=== PATIENT | female | born 1985 | race African-American/Black ===

== ENCOUNTER 2016-10-20 12:20 | Emergency (ER) | payer BC ==
[2016-10-20 13:02] LABS: ASCORBIC ACID (UR NOT ORDER) NEG (NEG); BILIRUBIN, URINE NEGATIVE (NEG); ER URINALYSIS TAT 0 Hrs 19 Mins; KETONE, URINE 80 MG/DL (NEG); LEUKOCYTE ESTERASE(NOT OR NEG (NEG); NITRITE (URINE) NEG (NEG); WBC (NOT ORDERED) (RFLEX) 6 (0-5)
[2016-10-20 13:02] LABS: BASOPHILS 0.1 %; BASOPHILS ABSOLUTE 0.01 10/3/uL (0.0-0.16); EOSINOPHILS 0.3 %; EOSINOPHILS ABSOLUTE 0.02 10/3/uL (0.0-0.53); ER CBC TAT 0 Hrs 07 Mins; HEMATOCRIT 34.1 % (36.0-48.0); HEMOGLOBIN 11.7 g/dL (12.0-16.0); IMMATURE GRANULOCYTES 0.1 %; IMMATURE GRANULOCYTES ABSOLUTE 0.01 10/3/uL (0.0-0.11); LYMPHOCYTES 14.5 %; MEAN CORPUS HGB CONC 34.3 g/dL (32.0-36.0); MEAN CORPUSCULAR HEMOGLOB 29.9 pg (26.0-34.0); MEAN CORPUSCULAR VOLUME 87.2 fL (80-100); MEAN PLATELET VOLUME 11.1 fL (9.2-13.0); MONOCYTES 5.9 %; MONOCYTES ABSOLUTE 0.41 10/3/uL (0.21-1.20); NEUTROPHILS 79.1 %; NEUTROPHILS ABSOLUTE 5.45 10/3/uL (2.02-8.40); PLATELET COUNT 212 10/3/uL (150-400); RBC DISTRIBUTION WIDTH 12.9 % (12.0-16.0); RED CELL COUNT 3.91 10/6/uL (4.0-5.6); WHITE BLOOD CELLS 6.9 10/3/uL (4.5-10.5)
[2016-10-20 13:03] LABS: MANUAL DIFF NO %
[2016-10-20 13:17] LABS: AMPHETAMINES (NOT ORD) NEG (NEG); BARBITURATES (NOT ORDERED NEG (NEG); BENZODIAZEPINES (NOT ORD) NEG (NEG); CANNABINOIDS (THC) POS (NEG); COCAINE (NOT ORDERED) NEG (NEG); OPIATES POS (NEG); PHENCYCLIDINE(PCP) NEG (NEG); TRICYCLICS NEG (NEG)
[2016-10-20 13:18] LABS: ALBUMIN 3.6 G/DL (3.5-5.0); ALKALINE PHOSPHATASE 64 U/L (45-117); BUN (BLOOD UREA NITROGEN) 6 MG/DL (6-23); CALCIUM, SERUM 9.1 MG/DL (8.5-10.4); CHLORIDE, SERUM 110 MMOL/L (96-112); CO2 (CARBON DIOXIDE) 23 MMOL/L (24-34); CREATININE 1.06 MG/DL (0.55-1.02); GFR AFRICAN AMERICAN 80 ML/MIN (>=60); GFR NON AFRICAN AMERICAN 69 ML/MIN (>=60); GLOBULIN 3.7 G/DL (2.5-4.1); POTASSIUM, SERUM 3.5 MMOL/L (3.5-5.3); SGOT(AST) 65 U/L (5-40); SGPT(ALT) 44 U/L (5-65); SODIUM, SERUM 143 MMOL/L (135-148); TOTAL BILIRUBIN 0.7 MG/DL (0-1.2); TOTAL PROTEIN 7.3 G/DL (6.0-8.5)
[2016-10-20 13:19] LABS: GLUCOSE, SERUM 102 MG/DL (60-99)
== END 2016-10-20 15:28 | disposition home or self-care (01) ==
LOC: ER 12:20
PROVIDERS: Physician Assistant Medical
DX: F12.90 Cannabis use, unspecified, uncomplicated (principal); R11.2 Nausea with vomiting, unspecified; F17.200 Nicotine dependence, unspecified, uncomplicated
CPT/HCPCS: 80053; 80305; 81001; 83690; 84703; 85025; 93005; 96372; 96374; 96375; 99284; J1630; J1885; J2405

== ENCOUNTER 2016-10-22 08:54 | Emergency (ER) | payer BC ==
[2016-10-22 09:43] LABS: BASOPHILS 0.5 %; BASOPHILS ABSOLUTE 0.03 10/3/uL (0.0-0.16); EOSINOPHILS 0.7 %; EOSINOPHILS ABSOLUTE 0.04 10/3/uL (0.0-0.53); HEMOGLOBIN 13.1 g/dL (12.0-16.0); IMMATURE GRANULOCYTES ABSOLUTE 0.06 10/3/uL (0.0-0.11); LYMPHOCYTES 27.1 %; LYMPHOCYTES ABSOLUTE 1.55 10/3/uL (0.67-4.30); MEAN CORPUS HGB CONC 34.7 g/dL (32.0-36.0); MEAN CORPUSCULAR HEMOGLOB 29.8 pg (26.0-34.0); MEAN CORPUSCULAR VOLUME 86.1 fL (80-100); MEAN PLATELET VOLUME 10.9 fL (9.2-13.0); MONOCYTES 10.3 %; MONOCYTES ABSOLUTE 0.59 10/3/uL (0.21-1.20); NEUTROPHILS 60.4 %; NEUTROPHILS ABSOLUTE 3.45 10/3/uL (2.02-8.40); RBC DISTRIBUTION WIDTH 12.6 % (12.0-16.0); RED CELL COUNT 4.39 10/6/uL (4.0-5.6); WHITE BLOOD CELLS 5.7 10/3/uL (4.5-10.5)
[2016-10-22 09:45] LABS: HEMATOCRIT 37.8 % (36.0-48.0); MANUAL DIFF NO %; PLATELET COUNT 281 10/3/uL (150-400)
[2016-10-22 09:59] LABS: A/G RATIO 0.8 (0.7-1.9); ALBUMIN 3.6 G/DL (3.5-5.0); ALKALINE PHOSPHATASE 70 U/L (45-117); BUN (BLOOD UREA NITROGEN) 5 MG/DL (6-23); CHLORIDE, SERUM 102 MMOL/L (96-112); CO2 (CARBON DIOXIDE) 26 MMOL/L (24-34); CREATININE 0.82 MG/DL (0.55-1.02); GFR AFRICAN AMERICAN 110 ML/MIN (>=60); GFR NON AFRICAN AMERICAN 95 ML/MIN (>=60); GLOBULIN 4.4 G/DL (2.5-4.1); GLUCOSE, SERUM 88 MG/DL (60-99); POTASSIUM, SERUM 3.2 MMOL/L (3.5-5.3); SGOT(AST) 44 U/L (5-40); SGPT(ALT) 57 U/L (5-65); SODIUM, SERUM 138 MMOL/L (135-148); TOTAL BILIRUBIN 0.9 MG/DL (0-1.2)
[2016-10-22 11:39] LABS: ASCORBIC ACID (UR NOT ORDER) NEG (NEG); BILIRUBIN, URINE NEGATIVE (NEG); ER URINALYSIS TAT 0 Hrs 12 Mins; KETONE, URINE 80 MG/DL (NEG); LEUKOCYTE ESTERASE(NOT OR NEG (NEG); NITRITE (URINE) NEG (NEG); WBC (NOT ORDERED) (RFLEX) 3 (0-5)
[2016-10-23] MEDS ORDERED: PR25 PO (17:35)
[2016-10-23] MEDS ORDERED: LEVSINTAB PO (17:37)
[2016-10-23] MEDS ORDERED: KLOR-CON M2020 MEQ PO (17:37)
[2016-10-23] MEDS ORDERED: HAIR/SKIN/NAILS PO (17:38)
[2016-10-23] MEDS ORDERED: CIP5 PO (17:38)
[2016-10-23] MEDS ORDERED: HARD NAILS PO (17:38)
[2016-10-23] MEDS ORDERED: CRANBERRY PO (17:38)
[2016-10-23] MEDS ORDERED: ZOFRANODT8 PO (17:39)
== END 2016-10-22 15:47 | disposition home or self-care (01) ==
LOC: ER 08:54
PROVIDERS: Emergency Medicine
DX: K52.9 Noninfective gastroenteritis and colitis, unspecified (principal); E87.6 Hypokalemia; F41.9 Anxiety disorder, unspecified; F17.200 Nicotine dependence, unspecified, uncomplicated
CPT/HCPCS: 74177; 80053; 81001; 83690; 84703; 85025; 96374; 96375; 99284; A9270-GY; J1170; J1956; J2405; Q9967

== ENCOUNTER 2016-10-23 14:49 | Inpatient (IN) | payer BC ==
--- NOTE | ~2016-10-23 | DS ---
Discharge Summary [facility] [address] [place]. [address] NAME: MARY KAY SHAH : 81 STATUS : DIS IN PAT#: [id number] AGE: 30 ADM/REG DATE : 10/23/16 MR#: [id number] REPORT SERV DATE: 10/29/16 DICTATED BY: JR. PEREZ WILLIAM JOHN DATE: 10/28/16 REPORT STATUS : Draft TRANSCRIBED BY: TREV DATE: 10/28/16 ADMISSION DATE: 10/23/2016 DISCHARGE DATE: 10/28/2016 DISCHARGE DIAGNOSES: Include: 1. Biliary dyskinesia with intractable nausea and vomiting. 2. Aortic insufficiency with demand ischemia. 3. Alcohol and marijuana use. 4. Hypokalemia. 5. Hyperglycemia. OPERATIONS/PROCEDURES AND TREATMENTS: Include: 1. Laparoscopic cholecystectomy done by Dr. Penn, 10/27/2016. 2. Chest x-ray done 10/24/2016 showed no acute cardiopulmonary abnormalities. 3. Gallbladder ultrasound done 10/24/2016, which showed many gallstones with tenderness over the gallbladder. No evidence of cholecystitis. 4. HIDA scan done 10/26/2016 showed no evidence of common bile duct or cystic duct obstruction. There was mildly diminished gallbladder ejection fraction of 32% consistent with biliary dyskinesia. 5. Echocardiogram done 10/24/2016, which showed left ventricular systolic function intact at 58% with left ventricular diastolic function intact, right ventricular systolic function intact. There was qllg-wa-vxgbsvmi aortic insufficiency centrally located. DISCHARGE MEDICATIONS: Include: 1. Phenergan 25 mg every four hours as needed. 2. Levsin 0.125 mg every four hours as needed. 3. Biotin one capsule daily. 4. Cranberry extract one tablet daily. 5. Percocet 5/325 every four hours as needed. 6. Zofran 4 mg every six hours as needed. HOSPITAL COURSE: The patient is a 30-year-old female, who presented to the emergency room on 10/23/2016 with complaint of nausea, vomiting, and abdominal pain. The patient's episodes began eight days prior to presentation with generalized malaise, nausea, and diarrhea and lasting couple days without evident blood. It worsens when she tries to eat. She had been to the emergency room three times in the interim. She was given a prescription for Cipro, which she did not take because "insurance did not cover it." She also had Levsin in addition to potassium. She continued to have abdominal pain, intermittent and sharp in the epigastric and lower right quadrant. On initial exam, her temperature is 98, heart rate 88, respiratory rate 16, blood pressure 170/86. Abdominal exam showed bowel sounds to be positive, soft, nondistended with moderate tenderness diffusely mostly in the epigastrium. Laboratory was overall unremarkable. The patient was admitted to the Clinical Decision Unit. She was treated conservatively with antiemetics and IV fluids. Continued to have nausea, vomiting, abdominal pain. She Discharge Summary [place] [id number] [facility] [place]. [address] NAME: MARY KAY SHAH : 81 STATUS : DIS IN PAT#: [id number] AGE: 30 ADM/REG DATE : 10/23/16 MR#: [id number] REPORT SERV DATE: 10/29/16 DICTATED BY: JR. PEREZ WILLIAM JOHN DATE: 10/28/16 REPORT STATUS : Draft TRANSCRIBED BY: TREV DATE: 10/28/16 underwent an echocardiogram for a murmur and was found to have llfh-rd-njbchggd aortic insufficiency. Regarding the aortic insufficiency, I discussed this with Cardiology. Her troponins were mildly elevated at 0.14. Cardiology felt this could be handled as an outpatient as there were no symptoms of acute coronary syndrome, no ischemic changes, and troponin curve was flat. The patient will be set up for outpatient followup in this regard. Regarding the nausea and vomiting, the patient continued to have nausea and vomiting. She underwent an ultrasound of the gallbladder, which is detailed above. Many stones were found. General Surgery and GI were consulted. The patient underwent a HIDA scan, which showed biliary dyskinesia without ductal obstruction. The patient subsequently underwent uneventful laparoscopic cholecystectomy by Dr. Penn on 10/27/2016. By 10/28/2016, the patient was able to tolerate food with some nausea, but no vomiting. She had flatus. Her abdominal exam was unremarkable and suture sites were intact. Regarding the alcohol and drug use, there was no evidence of detoxification. Regarding the remainder of the patient's health problems, they were stable. The patient will be discharged home today, 10/28/2016 in good condition. She will follow up with Cardiology at the next available time regarding aortic insufficiency. She will follow up with her primary care provider, Kiera Figueroa in one week and she will follow up with Dr. Penn per his wishes. I am attempting to communicate with Dr. Penn to find lifting restrictions and when the patient can return to work. Diet will be regular. This discharge took 35 minutes for patient encounter, coordination of care, and documentation. WJF/MODL Gibson Perez Jr, MD / [id number] CC: Gibson Perez Jr, MD MONTGOMERY, HEATHER
--- NOTE | ~2016-10-23 | CN ---
Consultation Report [facility] [address] [place]. [address] NAME: MARY KAY SHAH : 81 STATUS : ADM Analisa PAT#: [id number] AGE: 30 ADM/REG DATE : 10/23/16 MR#: [id number] REPORT SERV DATE: 10/25/16 DICTATED BY: NACHO MARTINEZ DATE: 10/25/16 REPORT STATUS : Draft TRANSCRIBED BY: TREV DATE: 10/25/16 GI CONSULTATION DATE OF CONSULTATION: 10/24/2016 REASON FOR CONSULTATION: Nausea, vomiting, and abdominal pain. HISTORY OF PRESENT ILLNESS: Ms. Shah is a 30-year-old female with a history of anxiety and panic attacks, who presented to [facility] with nausea, vomiting, and abdominal pain over the past eight days. She had been to the ER three times in total this month. She also reports that initially, she had diarrhea for two days, but this has since resolved. She has been given Levsin, Phenergan, and Zofran without any significant improvement of her symptoms. Her CBC and CMP have been normal. Her lipase was mildly elevated at 750, which is still less than two times the upper limit of normal (normal being 393). Her lipase is 397 today. She had a CT scan on 10/22/2016, which showed no acute findings. An ultrasound showed gallstones but without any evidence of cholecystitis and a normal common bile duct diameter. She had a positive sonographic Pappas sign. PAST MEDICAL HISTORY: Anxiety, panic attacks. PAST SURGICAL HISTORY: x4, tubal ligation. SOCIAL HISTORY: Tobacco use. Admitted to a bottle of vodka on weekends. Tested positive for marijuana. FAMILY HISTORY: Ovarian and breast cancers, and muscular dystrophy. MEDICATIONS: Reviewed. ALLERGIES: REVIEWED. PHYSICAL EXAMINATION: VITAL SIGNS: The patient is afebrile. Vital signs are stable. GENERAL: The patient is awake, alert, oriented x3. Well developed, well nourished, in no acute distress. HEENT: Atraumatic, normocephalic. Anicteric. Mucous membranes moist. CARDIAC: S1, S2. CHEST: Clear to auscultation bilaterally. ABDOMEN: Soft. Mild tenderness to palpation without any rebound or guarding. Bowel sounds normoactive, nondistended. LABORATORY DATA: Show WBC 6.9, hemoglobin 12.5, hematocrit 37, platelets 296. Sodium 138, potassium 3.9, chloride 105, bicarb 23, BUN 6, creatinine 0.76, glucose 76, lipase 397. Liver enzymes normal. INR is 1.2. CT scan and ultrasound as dictated above. Consultation Report [place] [id number] [place]. [address] NAME: MARY KAY SHAH : 81 STATUS : ADM Analisa PAT#: [id number] AGE: 30 ADM/REG DATE : 10/23/16 MR#: [id number] REPORT SERV DATE: 10/25/16 DICTATED BY: NACHO MARTINEZ DATE: 10/25/16 REPORT STATUS : Draft TRANSCRIBED BY: TREV DATE: 10/25/16 IMPRESSION AND PLAN: Nausea, vomiting, and abdominal pain. Gallstones seen on ultrasound; however, no cholecystitis or choledocholithiasis. No biliary dilatation seen. Surgery has already been consulted by hospitalist service. We will go ahead and order a HIDA scan for further evaluation of gallbladder function. We will continue to follow with you. AMPARO/TREV Nacho Martinez MD / [id number] CC: Gibson Perez Jr, MD MONTGOMERY, HEATHER
--- NOTE | ~2016-10-23 | HP ---
History And Physical [place] [id number] [facility] [place]. [address] NAME: MARY KAY SHAH : 81 STATUS : ADM Analisa PAT#: [id number] AGE: 30 ADM/REG DATE : 10/23/16 MR#: [id number] REPORT SERV DATE: 10/23/16 DICTATED BY: PATRICK STAHL DATE: 10/23/16 REPORT STATUS : Draft TRANSCRIBED BY: MODL DATE: 10/23/16 DATE OF ADMISSION: 10/23/2016 IDENTIFYING DATA: A 30-year-old female, whose PCP is Kiera Figueroa. CHIEF COMPLAINT: Nausea, vomiting, abdominal pain. HISTORY OF PRESENT ILLNESS: This history of present illness is obtained by discussion with the patient as well as with the ER provider and reviewing [facility] and the current ER chart. The patient states beginning eight days ago, she had general malaise, then she developed nausea and diarrhea. The diarrhea only lasted the first couple of days. There was never any red color or black color in it, but she states the nausea and vomiting have continued ever since. She states it gets worse if she tries to take anything by mouth. There has never been any red or black color in the emesis. She states she has come to the emergency room three times and indeed, I see that she has been at this particular emergency room on 10/20/2016, 10/22/2016 as well as today. She was given prescriptions for Phenergan and Zofran. She states they did not help. She was given a prescription for Cipro, but she did not start it because "insurance did not cover it." She also had some Levsin prescription given to her and potassium prescription. She describes she has abdominal pain through this week, right lower quadrant and epigastric area. It worsens when she tries to take anything by mouth. It is intermittent and sharp. In the emergency room today, she was found to have elevated lipase and felt to have pancreatitis, so we have been asked to admit her to the hospital. REVIEW OF SYSTEMS: She states she has had a temperature up to 99. She states her blood pressure has been elevated at some of her ER visits, but not otherwise in the past other than with . She states she has a fluttering sensation in her chest. She has been short of breath a bit this week. She states her arms and legs tingle when she gets nauseated. She has chronic headaches for which she states she takes oenl-hfp-piewxrg Tylenol PM and Excedrin. She denies any other chqd-kdd-nlazunj medicines. She denies sore throat, cough, chest pain, dysuria, urinary hesitancy, peripheral edema, rash, tick bites. She states she has lost weight from 189 pounds down to 160 pounds, but it is unclear over what period of time. ALLERGIES: NO KNOWN DRUG ALLERGIES. PAST MEDICAL HISTORY: She denies any history of diabetes, hypertension, asthma, COPD, heart disease, peptic ulcer, biliary tract disease, liver disease, blood transfusions, chronic kidney disease or kidney stones, thyroid disease or cancer. She admits a history of anxiety and panic attacks and in the past, was given Wellbutrin and propranolol. She states propranolol made her heart go to slow and Wellbutrin caused her to have more weight loss. She was given a prescription for Paxil in its place, but she never really took it. She has migraine headaches. She has had breast cyst on the left side, History And Physical [address] [address] NAME: MARY KAY SHAH : 81 STATUS : ADM Analisa PAT#: [id number] AGE: 30 ADM/REG DATE : 10/23/16 MR#: [id number] REPORT SERV DATE: 10/23/16 DICTATED BY: PATRICK STAHL DATE: 10/23/16 REPORT STATUS : Draft TRANSCRIBED BY: TREV DATE: 10/23/16 which she states is being followed by her physician with mammograms and she has family history of breast cancer. MEDICATIONS: Biotin for nails and hair; Levsin 0.125 mg q.4 hours p.r.n.; Zofran ODT 8 mg every eight hours p.r.n.; KCl 20 mEq daily, which I am not sure she took that; Phenergan 25 mg q.4 hours p.r.n. nausea, which was recently given to her as a prescription after one of her ER visits as well and some cranberry extract. SURGICAL HISTORY: She has had four C sections and she has had a tubal ligation. SOCIAL HISTORY: She smokes a very few cigarettes. She states on the weekend she drinks bottle of vodka. She states she does not drink otherwise. 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 She states she walks without assistive device. FAMILY HISTORY: States her mother had ovarian and breast cancer. She does not know about the health of her father. Siblings, one brother had muscular dystrophy and . Some cousins and aunts with breast cancer. DIAGNOSTIC AND LABORATORY DATA: CT scan of the abdomen and pelvis done yesterday, read by the radiologist as showing no acute abnormalities. Today, sodium 137, potassium 3.1, chloride 101, CO2 is 27, BUN 7, creatinine 0.86, glucose 97, calcium 9.4, globulin is 4.2. The rest of the CMP is normal. Lipase is 750. Serum HCG is negative today. Urine HCG was negative yesterday. Today's white count is 6.9, yesterday it was 5.7. Today's hemoglobin is 14.4, yesterday it was 13.1 and on 10/20/2016, it was 11.7. This pattern suggests hemoconcentration over the last few days. Platelets are 355,000. Urinalysis today, specific gravity 1.027, protein 100, ketones 80, urobilinogen 2, 3 white blood cells. PHYSICAL EXAMINATION: VITAL SIGNS: Temperature is 98, pulse 88, respirations 16, blood pressure 170/86, and O2 saturation 100% on room air. GENERAL: A well-developed female, who appears moderately uncomfortable at this time, but in no acute distress. HEENT: Head is atraumatic. Pupils are equal, round, and reactive to light. Extraocular motions are intact. No scleral icterus noted. Ear canals and TMs unremarkable. Nose, noninflamed externally. Septum midline. Nares patent. Mouth is dry, but there is good gag. No redness of the throat, gums, or lips. NECK: Supple. No lymph node or thyroid enlargement. The carotids have good pulses. No bruits. LUNGS: Clear, good air flow, no wheezes, no rhonchi anteriorly and posteriorly. Normal respiratory effort. HEART: Regular rate and rhythm with a grade 3-4/6 diastolic murmur heard best at the lower left sternal border. No gallop noted. ABDOMEN: Bowel sounds are positive. It is soft, nondistended. She has moderate tenderness diffusely, mostly in the epigastric area, somewhat in the right lower quadrant. No bruits noted. EXTREMITIES: Warm. Good pulses. No clubbing. No cyanosis. No edema. No actively inflamed skin or joints. History And Physical [address] [address] NAME: MARY KAY SHAH : 81 STATUS : ADM Analisa PAT#: [id number] AGE: 30 ADM/REG DATE : 10/23/16 MR#: [id number] REPORT SERV DATE: 10/23/16 DICTATED BY: PATRICK STAHL DATE: 10/23/16 REPORT STATUS : Draft TRANSCRIBED BY: TREV DATE: 10/23/16 NEUROLOGIC: She is alert. She is mildly anxious, but very cooperative. Her motor strength is intact throughout. No Babinski. No clonus noted. Cranial nerves II through XII grossly normal. ASSESSMENT: 1. Eight days of nausea, vomiting, and epigastric and right lower quadrant pain status post diarrhea (she states diarrhea resolved after the first couple of days). Differential diagnosis, pancreatitis which certainly have to be considered given the location of her pain and the nausea and her lipase elevation at 750 today. Other possibilities would be peptic ulcer disease or gastritis or an infectious etiology. 2. Significant diastolic murmur, may be aggravated by her volume depletion, but it does suggest significant aortic insufficiency. 3. Moderate weekend alcohol intake of bottle of vodka per weekend. The patient also had THC in her urine on urine drug screen here on 10/20/2016. 4. Hypokalemia related to eight days of nausea, vomiting, and epigastric and right lower quadrant pain status post diarrhea. 5. Elevated globulin suggesting some chronic inflammatory process. PLAN: 1. Observation status. 2. IV fluids. 3. Check an echocardiogram to check that murmur. 4. Check stool guaiac. 5. Check TSH with her weight loss. 6. Check HIV and hepatitis B and C. 7. Consultation to GI to consider EGD. 8. Gallbladder ultrasound. 9. [facility] protocol for her alcohol intake history, just to be cautious. NIK/TREV Patrick Stahl M.D. / [id number] CC: Gibson Perez Jr, MD Heather Montgomery, NP
--- NOTE | ~2016-10-23 | CN ---
Consultation Report [address] [place]. [address] NAME: MARY KAY SHAH : 81 STATUS : ADM Analisa PAT#: [id number] AGE: 30 ADM/REG DATE : 10/23/16 MR#: [id number] REPORT SERV DATE: 10/25/16 DICTATED BY: WALT CELESTIN DATE: 10/25/16 REPORT STATUS : Draft TRANSCRIBED BY: MODL DATE: 10/25/16 CONSULT NOTE DATE OF CONSULTATION: 10/25/2016 REASON FOR REQUEST: Evaluation for cholelithiasis. HISTORY OF PRESENT ILLNESS: Ms. Shah is a 30-year-old female, who for the past two weeks, has been experiencing epigastric abdominal pain and nausea and vomiting. She denies any intolerance to fatty foods and no fever or chills, no history of jaundice, just severe nausea and vomiting. She was admitted to the hospitalist service after having a CT scan that was completely normal. Ultrasound did demonstrate gallstones, but no evidence of cholecystitis. She denies any fever or chills. PAST MEDICAL HISTORY: Otherwise unremarkable. PREVIOUS SURGERIES: Include C-sections. ALLERGIES: NO KNOWN DRUG ALLERGIES. CURRENT MEDICATIONS: Taken at home, Levsin. SOCIAL HISTORY: She does smoke and drinks alcohol. FAMILY HISTORY: Significant for ovarian and breast cancer. REVIEW OF SYSTEMS: Comprehensive 12-point review of systems obtained and completely negative other than what was mentioned in history of present illness. PHYSICAL EXAMINATION: VITAL SIGNS: Temperature is 98.2, pulse 85, blood pressure 160/98. GENERAL: She is a well-developed female in no acute cardiopulmonary distress. HEENT: Pupils are equal, round, and reactive to light. Extraocular motions are intact. Conjunctivae are nonicteric. NECK: Supple. PULMONARY: Normal respiratory effort. Breath sounds are clear. CARDIOVASCULAR: Regular rate and rhythm. ABDOMEN: Soft. She has no Pappas sign. No tenderness whatsoever. EXTREMITIES: No clubbing, cyanosis, or edema. LABORATORY DATA: White blood cell count is 6.9, hematocrit 37, platelet count 296. Sodium 138, potassium 3.9, chloride 105, CO2 of 23, BUN 6, creatinine 0.7, lipase is 397. Troponin 0.14. Alk phos 55. Total bilirubin 1.1. Abdominal ultrasound does demonstrate gallstones, Consultation Report [place] [id number] [place]. [address] NAME: MARY KAY SHAH : 81 STATUS : ADM Analisa PAT#: [id number] AGE: 30 ADM/REG DATE : 10/23/16 MR#: [id number] REPORT SERV DATE: 10/25/16 DICTATED BY: WALT CELESTIN DATE: 10/25/16 REPORT STATUS : Draft TRANSCRIBED BY: MODL DATE: 10/25/16 but no evidence of wall thickening or pericholecystic fluid. CT scan of the abdomen and pelvis obtained completely normal with no inflammatory process seen. ASSESSMENT: 1. Cholelithiasis. 2. Nausea and vomiting. PLAN: Agree with the GI consult to get worked up for this extensive nausea and vomiting. Apparently, a HIDA scan has been ordered, but has not been performed as of yet. We will await that study. If no other etiology is identified, she may benefit from a cholecystectomy, but she does not have clinical signs of cholecystitis. DAMEON/TREV Walt Celestin M.D. / [id number] CC: Gibson Perez Jr, MD [place]TGOM[place], HEATHER
--- NOTE | ~2016-10-23 | OP ---
Record Of Operation [facility] [address] [place]. [address] NAME: MARY KAY SHAH : 81 STATUS : ADM IN PAT#: [id number] AGE: 30 ADM/REG DATE : 10/23/16 MR#: [id number] REPORT SERV DATE: 10/28/16 DICTATED BY: WALT CELESTIN DATE: 10/28/16 REPORT STATUS : Draft TRANSCRIBED BY: MODL DATE: 10/28/16 DATE OF PROCEDURE: 10/27/2016 PREOPERATIVE DIAGNOSIS: Cholelithiasis. POSTOPERATIVE DIAGNOSIS: Cholelithiasis. PROCEDURE PERFORMED: Laparoscopic cholecystectomy. SURGEON: Walt Celestin M.D. ANESTHESIA: General. ESTIMATED BLOOD LOSS: Minimal. SPECIMEN REMOVED: One gallbladder. BRIEF HISTORY: Ms. Shah is a 30-year-old female, presents with persistent nausea and vomiting. Imaging has confirmed presence of gallstones and Gastroenterology has been consulted to see her as well, thought her nausea may be secondary to biliary colic, and she presents today for cholecystectomy. FINDINGS AT TIME OF PROCEDURE: Ms. Shah' gallbladder was pale and distended, had some mild chronic inflammation. Limited examination of her liver, stomach, small and large bowel with no obvious abnormalities. DETAILS OF PROCEDURE: Following informed consent the patient was taken to the operating room and placed supine on the operating room table. After successful induction of general endotracheal anesthesia the abdomen was prepped and draped in the usual sterile fashion. An umbilical skin incision was made and skin hooks to elevate the skin edges and anterior rectus fascia. There was a small umbilical hernia defect and we were able to use this for the portal of entry into the abdominal cavity. A non bladed 5-mm trocar was inserted through this orifice, connected insufflation tubing and the peritoneal cavity was insufflated with carbon dioxide to a resting pressure of 15 mm mercury. A 5-mm laparoscope was then introduced. The underlying bowel and vascular structures were carefully inspected and noted to be free from injury from initial trocar insertion. Three additional trocars were placed under direct visualization and a 10 mm subxiphoid epigastric trocar followed by two 5 mm trocars placed in the right upper quadrant. The gallbladder was grasped at its fundus and retracted in lateral and cephalad direction toward the patient's right shoulder blade. The infundibulum of the gallbladder was then grasped and retracted inferiorly and laterally toward the patient's right anterior, superior iliac spine. The cystic duct and cystic artery were dissected free from the overlying fatty peritoneal structures and once a critical view was obtained and both of these structures were clearly seen to transverse into the infundibulum of the gallbladder the cystic artery was triply clipped and ligated with scissors and a clip was applied at the cystic duct, infundibular junction. A cystotomy was created and cholangiogram catheter was then gently inserted into the cystic duct and loosely Record Of Operation [facility] [address] [place]. [address] NAME: MARY KAY SHAH : 81 STATUS : ADM IN PAT#: [id number] AGE: 30 ADM/REG DATE : 10/23/16 MR#: [id number] REPORT SERV DATE: 10/28/16 DICTATED BY: WALT CELESTIN DATE: 10/28/16 REPORT STATUS : Draft TRANSCRIBED BY: MODShannan DATE: 10/28/[address] with titanium clip. Mobile fluoroscopy was utilized and as contrast was injected the distal cystic duct and common bile duct and hepatic radicles were all visualized and contained no filling defects and flow was seen to empty into the duodenum uneventfully. After completing intraoperative cholangiogram the cholangiogram catheter was removed and the cystic duct was triply clipped and ligated and divided with scissors. The gallbladder was then dissected free from the gallbladder fossa using blunt dissection and cautery. It was placed inside endoscopic retrieval pouch and removed through the 10 mm trocar site intact and without incident. The gallbladder fossa was then copiously irrigated. Hemostasis was secured with cautery and there was no evidence of bile leakage from either the gallbladder fossa or cystic duct remnant. The two 5 mm trocars were removed, followed by 10 mm subxiphoid trocar. Their sites were observed and hemostasis was noted. The peritoneal cavity was desufflated. Laparoscope was removed. The fascia beneath the 10 mm umbilical trocars were approximated using 0 Vicryl sutures. Skin edges of all 4 incisions approximated using 4-0 Monocryl subcuticular suture and Dermabond. At the completion of the case all sponge and needle counts correct. The patient was extubated and transferred to recovery room in satisfactory condition. DAMEON/TREV Walt Celestin M.D. / [id number] CC: Gibson Perez Jr, MD Heather Montgomery
[2016-10-23 15:34] LABS: BASOPHILS 0.7 %; BASOPHILS ABSOLUTE 0.05 10/3/uL (0.0-0.16); EOSINOPHILS 1.6 %; EOSINOPHILS ABSOLUTE 0.11 10/3/uL (0.0-0.53); HEMATOCRIT 41.2 % (36.0-48.0); HEMOGLOBIN 14.4 g/dL (12.0-16.0); IMMATURE GRANULOCYTES 0.9 %; IMMATURE GRANULOCYTES ABSOLUTE 0.06 10/3/uL (0.0-0.11); LYMPHOCYTES 31.2 %; LYMPHOCYTES ABSOLUTE 2.16 10/3/uL (0.67-4.30); MEAN CORPUSCULAR HEMOGLOB 29.8 pg (26.0-34.0); MEAN CORPUSCULAR VOLUME 85.1 fL (80-100); MEAN PLATELET VOLUME 10.9 fL (9.2-13.0); MONOCYTES 10.2 %; MONOCYTES ABSOLUTE 0.71 10/3/uL (0.21-1.20); NEUTROPHILS 55.4 %; NEUTROPHILS ABSOLUTE 3.84 10/3/uL (2.02-8.40); PLATELET COUNT 355 10/3/uL (150-400); RBC DISTRIBUTION WIDTH 12.5 % (12.0-16.0); RED CELL COUNT 4.84 10/6/uL (4.0-5.6); WHITE BLOOD CELLS 6.9 10/3/uL (4.5-10.5)
[2016-10-23 15:35] LABS: MANUAL DIFF NO %
[2016-10-23 15:50] LABS: A/G RATIO 0.9 (0.7-1.9); ALBUMIN 3.7 G/DL (3.5-5.0); ALKALINE PHOSPHATASE 61 U/L (45-117); BUN (BLOOD UREA NITROGEN) 7 MG/DL (6-23); CALCIUM, SERUM 9.4 MG/DL (8.5-10.4); CHLORIDE, SERUM 101 MMOL/L (96-112); CO2 (CARBON DIOXIDE) 27 MMOL/L (24-34); CREATININE 0.86 MG/DL (0.55-1.02); GFR AFRICAN AMERICAN 104 ML/MIN (>=60); GFR NON AFRICAN AMERICAN 89 ML/MIN (>=60); GLOBULIN 4.2 G/DL (2.5-4.1); GLUCOSE, SERUM 97 MG/DL (60-99); POTASSIUM, SERUM 3.1 MMOL/L (3.5-5.3); SGOT(AST) 27 U/L (5-40); SGPT(ALT) 43 U/L (5-65); SODIUM, SERUM 137 MMOL/L (135-148); TOTAL BILIRUBIN 1.1 MG/DL (0-1.2); TOTAL PROTEIN 7.9 G/DL (6.0-8.5)
[2016-10-23] MEDS ORDERED: PR25 PO (17:35)
[2016-10-23] MEDS ORDERED: LEVSINTAB PO (17:37)
[2016-10-23] MEDS ORDERED: KLOR-CON M2020 MEQ PO (17:37)
[2016-10-23] MEDS ORDERED: HAIR/SKIN/NAILS PO (17:38)
[2016-10-23] MEDS ORDERED: HARD NAILS PO (17:38)
[2016-10-23] MEDS ORDERED: CIP5 PO (17:38)
[2016-10-23] MEDS ORDERED: CRANBERRY PO (17:38)
[2016-10-23] MEDS ORDERED: ZOFRANODT8 PO (17:39)
[2016-10-23 18:05] LABS: ASCORBIC ACID (UR NOT ORDER) NEG (NEG); BILIRUBIN, URINE NEGATIVE (NEG); KETONE, URINE 80 MG/DL (NEG); LEUKOCYTE ESTERASE(NOT OR NEG (NEG); NITRITE (URINE) NEG (NEG); WBC (NOT ORDERED) (RFLEX) 3 (0-5)
[2016-10-23 20:52] LABS: INTERNATIONAL NORMAL RATI 1.2 UNITS (-); PARTIAL THROMBO TIME 28.9 SEC (22.5-37.2); PROTIME (NOT ORD) 15.5 SEC (12.0-14.5)
[2016-10-23 20:58] LABS: DIRECT BILIRUBIN 0.3 MG/DL (0.0-0.4); SGOT(AST) 12 U/L (5-40); SGPT(ALT) 20 U/L (5-65)
[2016-10-23 21:00] LABS: ALBUMIN 1.6 G/DL (3.5-5.0); ALKALINE PHOSPHATASE 31 U/L (45-117); INDIRECT BILIRUBIN(NOT ORDER) 0.3 MG/DL (0.1-0.9); TOTAL BILIRUBIN 0.6 MG/DL (0-1.2); TOTAL PROTEIN 3.7 G/DL (6.0-8.5); TROPONIN I 0.11 NG/ML (<0.05)
[2016-10-23 21:36] LABS: PROCALCITONIN <0.05 ng/mL (<0.5)
[2016-10-24 05:04] LABS: BASOPHILS ABSOLUTE 0.07 10/3/uL (0.0-0.16); EOSINOPHILS 2.2 %; EOSINOPHILS ABSOLUTE 0.15 10/3/uL (0.0-0.53); HEMOGLOBIN 12.5 g/dL (12.0-16.0); IMMATURE GRANULOCYTES 1.3 %; IMMATURE GRANULOCYTES ABSOLUTE 0.09 10/3/uL (0.0-0.11); LYMPHOCYTES 33.7 %; LYMPHOCYTES ABSOLUTE 2.32 10/3/uL (0.67-4.30); MEAN CORPUS HGB CONC 33.8 g/dL (32.0-36.0); MEAN CORPUSCULAR HEMOGLOB 29.3 pg (26.0-34.0); MEAN CORPUSCULAR VOLUME 86.9 fL (80-100); MEAN PLATELET VOLUME 11.1 fL (9.2-13.0); MONOCYTES 8.4 %; MONOCYTES ABSOLUTE 0.58 10/3/uL (0.21-1.20); NEUTROPHILS 53.4 %; NEUTROPHILS ABSOLUTE 3.68 10/3/uL (2.02-8.40); PLATELET COUNT 296 10/3/uL (150-400); RBC DISTRIBUTION WIDTH 12.8 % (12.0-16.0); RED CELL COUNT 4.26 10/6/uL (4.0-5.6); WHITE BLOOD CELLS 6.9 10/3/uL (4.5-10.5)
[2016-10-24 05:05] LABS: MANUAL DIFF NO %
[2016-10-24 05:14] LABS: BUN (BLOOD UREA NITROGEN) 6 MG/DL (6-23); CALCIUM, SERUM 8.7 MG/DL (8.5-10.4); CHLORIDE, SERUM 105 MMOL/L (96-112); CO2 (CARBON DIOXIDE) 23 MMOL/L (24-34); CREATININE 0.76 MG/DL (0.55-1.02); GFR AFRICAN AMERICAN 120 ML/MIN (>=60); GFR NON AFRICAN AMERICAN 104 ML/MIN (>=60); SGPT(ALT) 36 U/L (5-65); SODIUM, SERUM 138 MMOL/L (135-148)
[2016-10-24 05:21] LABS: A/G RATIO 0.8 (0.7-1.9); ALBUMIN 3.1 G/DL (3.5-5.0); ALKALINE PHOSPHATASE 55 U/L (45-117); GLOBULIN 3.8 G/DL (2.5-4.1); GLUCOSE, SERUM 76 MG/DL (60-99); POTASSIUM, SERUM 3.9 MMOL/L (3.5-5.3); TOTAL BILIRUBIN 1.1 MG/DL (0-1.2); TOTAL PROTEIN 6.9 G/DL (6.0-8.5)
[2016-10-24 05:22] LABS: TROPONIN I 0.14 NG/ML (<0.05)
[2016-10-24 05:32] LABS: SGOT(AST) 24 U/L (5-40)
[2016-10-25 06:36] LABS: BUN (BLOOD UREA NITROGEN) 3 MG/DL (6-23); CALCIUM, SERUM 8.7 MG/DL (8.5-10.4); CHLORIDE, SERUM 105 MMOL/L (96-112); CREATININE 0.73 MG/DL (0.55-1.02); GFR AFRICAN AMERICAN 126 ML/MIN (>=60); GFR NON AFRICAN AMERICAN 109 ML/MIN (>=60); POTASSIUM, SERUM 3.3 MMOL/L (3.5-5.3); SODIUM, SERUM 141 MMOL/L (135-148)
[2016-10-25 06:37] LABS: CO2 (CARBON DIOXIDE) 28 MMOL/L (24-34); GLUCOSE, SERUM 113 MG/DL (60-99); TROPONIN I 0.11 NG/ML (<0.05)
[2016-10-26 05:57] LABS: BUN (BLOOD UREA NITROGEN) 3 MG/DL (6-23); CALCIUM, SERUM 9.4 MG/DL (8.5-10.4); CHLORIDE, SERUM 101 MMOL/L (96-112); CO2 (CARBON DIOXIDE) 27 MMOL/L (24-34); GFR AFRICAN AMERICAN 98 ML/MIN (>=60); GFR NON AFRICAN AMERICAN 85 ML/MIN (>=60); GLUCOSE, SERUM 95 MG/DL (60-99); POTASSIUM, SERUM 3.7 MMOL/L (3.5-5.3); SODIUM, SERUM 138 MMOL/L (135-148)
[2016-10-27 04:53] LABS: HEMATOCRIT 37.1 % (36.0-48.0); HEMOGLOBIN 12.6 g/dL (12.0-16.0)
[2016-10-27 04:58] LABS: INTERNATIONAL NORMAL RATI 1.1 UNITS (-); PROTIME (NOT ORD) 13.6 SEC (12.0-14.5)
[2016-10-27 05:09] LABS: ALBUMIN 3.4 G/DL (3.5-5.0); ALKALINE PHOSPHATASE 65 U/L (45-117); BUN (BLOOD UREA NITROGEN) 5 MG/DL (6-23); CHLORIDE, SERUM 102 MMOL/L (96-112); CO2 (CARBON DIOXIDE) 29 MMOL/L (24-34); CREATININE 0.81 MG/DL (0.55-1.02); DIRECT BILIRUBIN 0.2 MG/DL (0.0-0.4); GFR AFRICAN AMERICAN 111 ML/MIN (>=60); GFR NON AFRICAN AMERICAN 96 ML/MIN (>=60); GLUCOSE, SERUM 99 MG/DL (60-99); INDIRECT BILIRUBIN(NOT ORDER) 0.4 MG/DL (0.1-0.9); POTASSIUM, SERUM 4.1 MMOL/L (3.5-5.3); SGOT(AST) 31 U/L (5-40); SGPT(ALT) 50 U/L (5-65); SODIUM, SERUM 140 MMOL/L (135-148); TOTAL BILIRUBIN 0.6 MG/DL (0-1.2); TOTAL PROTEIN 6.5 G/DL (6.0-8.5)
[2016-10-27] MEDS ORDERED: PCET PO (15:12)
== END 2016-10-28 12:44 | disposition home or self-care (01) | DRG 418 ==
LOC: ER 14:49 → CDU1 17:58 → CDU2 18:46 → SDC/OF 10-27 08:01 → 5SO 10-27 11:59
PROVIDERS: Anesthesiology; Emergency Medicine; Internal Medicine; Surgery
PROC: BF131ZZ Fluoroscopy of Gallbladder and Bile Ducts using Low Osmolar Contrast (ICD-10-PCS; 2016-10-27)
PROC: 0FT44ZZ Resection of Gallbladder, Percutaneous Endoscopic Approach (ICD-10-PCS; principal; 2016-10-27 07:00)
DX: K80.20 Calculus of gallbladder without cholecystitis without obstruction (principal); I24.8 Other forms of acute ischemic heart disease; F41.9 Anxiety disorder, unspecified; F10.10 Alcohol abuse, uncomplicated; F12.90 Cannabis use, unspecified, uncomplicated; F17.210 Nicotine dependence, cigarettes, uncomplicated; I35.1 Nonrheumatic aortic (valve) insufficiency; Z80.3 Family history of malignant neoplasm of breast; Z80.41 Family history of malignant neoplasm of ovary; Z79.899 Other long term (current) drug therapy; I35.0 Nonrheumatic aortic (valve) stenosis; E87.6 Hypokalemia; R73.9 Hyperglycemia, unspecified
CPT/HCPCS: 71020; 74177; 76705; 78227; 80048; 80053; 80076; 80305; 81001; 82272; 83690; 84145; 84484; 84703; 85014; 85018; 85025; 85610; 85730; 87045; 87046; 87046-59; 87328; 87329; 87389; 87493; 87493-59; 87899; 87899-59; 88304; 89055; 93005; 93306; 96372; 96374; 96375; 99284; A9270-GY; A9537; J0690; J1170; J1630; J1885; J1956; J2250; J2405; J2710; J2805; J3010; J3411; J3480; Q9967